=== PATIENT | male | born 1970 | race Caucasian/White ===

== ENCOUNTER 2016-09-03 06:10 | Day surgery (SDC) | payer BC ==
[~2016-09-03] VITALS: Ht 182.9 cm; Wt 86.0 kg
[2016-09-03] MEDS ORDERED: LACTATED RINGERS 1,000 ML IV SCH ×2 (06:55→08:31)
[2016-09-03 06:56] VITALS: BP 105/64
[2016-09-03] MEDS ORDERED: NO HOME MEDS (07:04)
[2016-09-03] MEDS ORDERED: FENTANYL PF 250 MCG/5ML ONE (07:16)
[2016-09-03] MEDS ORDERED: BUPIVACAINE/PF-EPI 0.25% 1:200K ONE (07:16)
[2016-09-03] MEDS ORDERED: MIDAZOLAM 1 MG/ML, 2ML ONE (07:16)
[2016-09-03] MEDS ORDERED: BUPIVACAINE/PF-EPI 0.5% 1:200K ONE (07:18)
[2016-09-03] MEDS ORDERED: ACETAMINOPHEN 325 MG TABLET PO PRN (07:30)
[2016-09-03] MEDS ORDERED: FENTANYL PF 100 MCG/2ML IV PRN (07:30)
[2016-09-03] MEDS ORDERED: hydrALAzine 20 MG/ML, 1ML IV PRN (07:30)
[2016-09-03] MEDS ORDERED: MEPERIDINE/PF 25MG/0.5ML IVPush PRN (07:30)
[2016-09-03] MEDS ORDERED: PROMETHAZINE 25 MG/ML, 1ML IV PRN (07:30)
[2016-09-03] MEDS ORDERED: ONDANSETRON 2MG/ML, 2ML IVPush PRN ×2 (07:30→09:00)
[2016-09-03] MEDS ORDERED: HYDROcodone/APAP 7.5-325MG/15ML UDC PO PRN (07:30)
[2016-09-03] MEDS ORDERED: EPHEDRINE 50 MG/ML, 1ML IVPush PRN (07:30)
[2016-09-03] MEDS ORDERED: LABETALOL 5MG/ML, 20ML IV PRN (07:30)
[2016-09-03] MEDS ORDERED: MIDAZOLAM 1 MG/ML, 2ML IV PRN (07:30)
[2016-09-03] MEDS ORDERED: HYDROmorphone 1 MG/ML, 1ML IV PRN (07:30)
[2016-09-03] MEDS ORDERED: OXYcodone 5 MG/5 ML ORAL.SOL UDC PO PRN (07:30)
[2016-09-03] MEDS ORDERED: ONDANSETRON 2MG/ML, 2ML ONE (07:32)
[2016-09-03] MEDS ORDERED: NEOSTIGMINE 1 MG/ML, 10ML ONE (07:32)
[2016-09-03] MEDS ORDERED: GLYCOPYRROLATE 0.2MG/1ML ONE (07:32)
[2016-09-03] MEDS ORDERED: PROPOFOL 10 MG/ML, 20ML ONE (07:32)
[2016-09-03] MEDS ORDERED: ROCURONIUM 10 MG/ML ONE (07:32)
[2016-09-03] MEDS ORDERED: CEFAZOLIN 1,000 MG ONE (07:32)
[2016-09-03] MEDS ORDERED: DEXAMETHASONE 4 MG/ML, 1ML ONE (07:32)
[2016-09-03] MEDS ORDERED: SUCCINYLCHOLINE 20 MG/ML, 10ML ONE (07:32)
[2016-09-03] MEDS ORDERED: HYDROcodone/APAP 7.5-325MG/15ML UDC ONE (08:46)
[2016-09-03] MEDS ORDERED: PLEASE ENTER ALLERGIES MC SCH ×2 (09:00)
[2016-09-03] MEDS ORDERED: morphine SULFATE 10 MG/ML, 1ML IVPush PRN (09:00)
[2016-09-03] MEDS ORDERED: HYDROcodone/APAP 5/325 TABLET PO PRN (09:00)
== END 2016-09-03 10:30 | disposition home or self-care (01) ==
LOC: OUT 06:10
PROVIDERS: ATTEND Thoracic Surgery (Cardiothoracic Vascular Surgery)
DX: I88.1 Chronic lymphadenitis, except mesenteric (principal); Z85.71 Personal history of Hodgkin lymphoma; Z94.81 Bone marrow transplant status; Z98.890 Other specified postprocedural states; Z72.89 Other problems related to lifestyle; Z80.1 Family history of malignant neoplasm of trachea, bronchus and lung
CPT/HCPCS: 39402; 88305; J0330; J0690; J1100; J2250; J2405; J2704; J2710; J3010; J7120; J3490